=== PATIENT | male | born 2000 | race Caucasian/White ===

== ENCOUNTER 2020-05-04 15:14 | Emergency (ER) | payer MEDICAID ==
[~2020-05-04] VITALS: Ht 180.3 cm; Wt 59.1 kg
[2020-05-04 15:24] VITALS: BP 123/70
[2020-05-04] MEDS ORDERED: ondansetron 4mg rapidly disintigrating tab PO ONE (15:45)
[2020-05-04] MEDS ORDERED: BACDS PO (15:45)
[2020-05-04] MEDS ORDERED: sulfamethoxazole/trimethoprim DS (800/160mg) tablet PO ONE (15:45)
[2020-05-04] MEDS ORDERED: bacitracin 15gm ointment TP ONE (15:45)
[2020-05-04] MEDS ORDERED: ibuprofen tablet 400 MG TABLET PO ONE (15:45)
== END 2020-05-04 16:00 | disposition home or self-care (01) ==
LOC: ER 15:15
DX: S81.001A Unspecified open wound, right knee, initial encounter (principal); X58.XXXA Exposure to other specified factors, initial encounter; Y93.9 Activity, unspecified; Y92.89 Other specified places as the place of occurrence of the external cause; Y99.8 Other external cause status
CPT/HCPCS: 99284

== ENCOUNTER 2020-06-03 16:36 | Emergency (ER) | payer MEDICAID ==
[~2020-06-03] VITALS: Ht 180.3 cm; Wt 59.1 kg
[2020-06-03 18:03] VITALS: BP 104/65
[2020-06-03 18:46] LABS: BASOPHILS # (AUTO) 0.1 X10'3 (0-0.2); BASOPHILS % (AUTO) 1.2 % (0-1); EOSINOPHILS # (AUTO) 0.2 X10'3 (0-0.9); EOSINOPHILS % (AUTO) 2.4 % (0-6); HEMATOCRIT 45.6 % (42.0-52.0); HEMOGLOBIN 15.1 g/dl (14.0-17.9); LYMPHOCYTES # (AUTO) 1.6 X10'3 (1.1-4.8); MEAN CORPUSCULAR HEMOGLOBIN 30.9 PG (27.0-31.0); MEAN CORPUSCULAR HGB CONC 33.2 g/dL (33.0-36.5); MEAN PLATELET VOLUME 9.5 FL (7.4-10.4); MONOCYTES # (AUTO) 0.5 X10'3 (0-0.9); MONOCYTES % (AUTO) 7.7 % (2-12); NEUTROPHILS # (AUTO) 4.2 X10'3 (1.8-7.7); NEUTROPHILS % (AUTO) 63.7 % (42-75); PLATELET COUNT 190 X10'3 (140-440); RED CELL DISTRIBUTION WIDTH 12.9 % (11.5-14.5); WHITE BLOOD COUNT 6.5 X10'3 (4.5-11.0)
[2020-06-03 18:52] LABS: CLARITY,URINE CLEAR (Clear); COLOR,URINE YELLOW (Yellow); GLUCOSE, URINE NEGATIVE (Neg); KETONES,URINE TRACE mg/dl (Neg); LEUKOCYTE ESTERASE ,URINE NEGATIVE (Neg); NITRITES, URINE NEGATIVE (Neg); OCCULT BLOOD,URINE NEGATIVE (Neg); PH,URINE 7.5 (4.8-8.0); PROTEIN,URINE 100 mg/dl (Neg)
[2020-06-03 18:58] LABS: UA COLLECTION TYPE VOIDED
[2020-06-03 18:59] LABS: BACTERIA,URINE NONE SEEN /HPF (Neg); RBC,URINE NONE SEEN /HPF (0-2); SQUAMOUS EPITHELIAL CELL,UR FEW /LPF (FEW); WBC,URINE 0-4 /HPF (0-4)
[2020-06-03 19:00] LABS: SPERM FEW /HPF (NEGATIVE)
[2020-06-03 19:02] LABS: ALANINE AMINOTRANSFERASE 22 U/L (12-78); ALBUMIN 4.8 G/DL (3.4-5.0); ALBUMIN/GLOBULIN RATIO 1.5 (1.1-1.5); ALKALINE PHOSPHATASE 87 IU/L (46-116); ANION GAP 9 (8-16); ASPARTATE AMINO TRANSFERASE 13 U/L (10-37); BILIRUBIN,TOTAL 0.3 MG/DL (0.1-1.0); BLOOD UREA NITROGEN 12 MG/DL (7-18); BUN/CREATININE RATIO 11.9 (5.4-32.0); CALCIUM 9.7 MG/DL (8.5-10.1); CHLORIDE 105 MMOL/L (99-107); CREATININE 1.01 MG/DL (0.60-1.10); GLUCOSE 75 MG/DL (70-104); LIPASE 112 U/L (73-393); POTASSIUM 4.6 MMOL/L (3.5-5.1); SODIUM 144 MMOL/L (135-145); TOTAL CARBON DIOXIDE 30.2 MMOL/L (24-32); TOTAL PROTEIN 8.1 G/DL (6.4-8.2); eGFR > 90 ML/MIN
--- NOTE | 2020-06-03 20:51 | NUR ---
Pt states pain is intermittant and not currently present. When present it is RLQ and 3/10.
[2020-06-03] MEDS ORDERED: IBUP-1986 PO (21:02)
== END 2020-06-03 21:07 | disposition home or self-care (01) ==
LOC: ER 16:36
DX: R10.31 Right lower quadrant pain (principal); R10.9 Unspecified abdominal pain; R59.0 Localized enlarged lymph nodes; F17.200 Nicotine dependence, unspecified, uncomplicated; F12.90 Cannabis use, unspecified, uncomplicated; Z72.89 Other problems related to lifestyle; Z79.899 Other long term (current) drug therapy
CPT/HCPCS: 36415; 80053; 81001; 83690; 85025; 99283

== ENCOUNTER 2021-03-28 15:45 | Emergency (ER) | payer MEDICAID ==
[~2021-03-28] VITALS: Ht 180.3 cm; Wt 59.1 kg
[~2021-03-28 15:45] MED LIST: IBUP-1986 PO
[2021-03-28 15:47] VITALS: BP 138/91
[2021-03-28] MEDS ORDERED: BENZ-16 PO (17:31)
[2021-03-28] MEDS ORDERED: AZIT250T PO (17:31)
== END 2021-03-28 17:44 | disposition home or self-care (01) ==
LOC: ER 15:45
DX: J20.9 Acute bronchitis, unspecified (principal); F17.200 Nicotine dependence, unspecified, uncomplicated; F12.90 Cannabis use, unspecified, uncomplicated; Z79.2 Long term (current) use of antibiotics; Z79.899 Other long term (current) drug therapy; Z72.89 Other problems related to lifestyle
CPT/HCPCS: 99283

== ENCOUNTER 2021-04-06 09:25 | Emergency (ER) | payer MEDICAID ==
[~2021-04-06] VITALS: Ht 180.3 cm; Wt 59.1 kg
[~2021-04-06 09:25] MED LIST changes: +AZIT250T PO; +BENZ-16 PO
[2021-04-06] MEDS ORDERED: predniSONE 20 mg tablet PO ONE (09:55)
[2021-04-06 10:01] VITALS: BP 101/65
[2021-04-06] MEDS ORDERED: PRED20TA PO (11:06)
[2021-04-06] MEDS ORDERED: ALBU8HFA PO (11:06)
== END 2021-04-06 11:32 | disposition home or self-care (01) ==
LOC: ER 09:26
DX: J02.9 Acute pharyngitis, unspecified (principal); B34.9 Viral infection, unspecified; Z20.822 Contact with and (suspected) exposure to COVID-19; F12.10 Cannabis abuse, uncomplicated; Z79.899 Other long term (current) drug therapy
CPT/HCPCS: 71045; 87635; 99284; C9803; J7512